=== PATIENT | male | born 2000 | race Caucasian/White ===

== ENCOUNTER 2024-12-01 17:44 | Emergency (ER) | payer BC, OTHER ==
[2024-12-01] MEDS ORDERED: KETOROLAC 30 MG/ML INJ ONE (19:09)
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
--- NOTE | 2024-12-01 19:30 | RAD REPORT ---
EXAMINATION: CERVICAL SPINE 3 VIEWS CLINICAL INDICATION: Male, 24 years old. PAIN TECHNIQUE: AP, lateral and odontoid views of the cervical spine were obtained. COMPARISON: No prior exam. FINDINGS: Alignment: The cervical spine has normal alignment. Straightening of normal lordosis which may be pos itional or secondary to muscle spasm. Bones: Vertebral body heights are maintained. No aggressive osseous lesions. Discs: Disc heights are maintained. Soft Tissue: No soft tissue abnormalities. IMPRESSION: No acute cervical spine abnormality.
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
[2024-12-01 21:06] VITALS: BP 153/81; TEMP 97.2; O2SAT 96
== END 2024-12-01 20:45 | disposition home or self-care (01) ==
LOC: ER 17:44
DX: M54.2 Cervicalgia (principal); V49.9XXA Car occupant (driver) (passenger) injured in unspecified traffic accident, initial encounter
CPT/HCPCS: 71045; 72040; 96372; 99284

== ENCOUNTER 2025-01-30 01:52 | Emergency (ER) | payer BC, OTHER ==
[2025-01-30] MEDS ORDERED: ONDANSETRON 4 MG/2 ML VIAL ONE ×2 (02:20→02:21)
[2025-01-30] MEDS ORDERED: NA CHLORIDE 0.9% 2,000 ML ONE (02:21)
[2025-01-30 02:26] LABS: Absolute Basophils 0.1 K/uL (0-0.5); Absolute Eosinophils 0.1 K/uL (0-0.5); Absolute Lymphocytes (CBC) 1.9 K/uL (0.7-4.9); Absolute Monocytes 1.1 K/uL (0.1-1.3); Absolute Neutrophil 9.2 K/uL (1.8-8.0); Eosinophils % 0.9 % (0-4.4); Hematocrit 43.9 % (39.6-49.0); Hemoglobin 14.9 g/dL (13.6-17.9); Lymphocytes % 15.2 % (15.3-44.8); MCH 29.8 pg (27.0-35.0); MCV 87.6 fL (80-100); MPV 7.4 fL (7.6-11.3); Monocytes % 9.1 % (3.3-12.3); Neutrophils % 73.8 % (41.7-73.7); Platelets 327 thou/uL (152-406); RBC Red Blood Cell Count 5.01 M/uL (4.33-5.43); Red Cell Distribution Width 13.9 % (12.1-15.2)
[2025-01-30 02:41] LABS: Albumin 3.3 g/dL (3.4-5.0); Albumin/Globulin Ratio 0.8 (1.1-1.8); Bilirubin Total 0.5 mg/dL (0.2-1.0); Globulin 4.2 g/dL (2.3-3.5); Protein, Total 7.5 g/dL (6.4-8.2)
[2025-01-30] MEDS ORDERED: ACETAMINOPHEN 500 MG TAB ONE (02:43)
[2025-01-30] MEDS ORDERED: MORPHINE 4 MG/ML SYR ONE (02:43)
[2025-01-30] MEDS ORDERED: KETOROLAC 30 MG/ML INJ ONE (02:43)
[2025-01-30] MEDS ORDERED: MORPHINE 2 MG/ML SYR ONE (02:44)
[2025-01-30] MEDS ORDERED: NA CHLORIDE 0.9% 1,000 ML ONE (02:44)
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
--- NOTE | 2025-01-30 04:41 | EDPHYS ---
Physician Documentation [facility] Name: Srinivasa Rojas Age: 24 yrs Sex: Male : 2000 Arrival Date: 01/30/2025 Time: 01:52 Bed 8 Private MD: ED Physician Josse Mcelroy HPI: 01/30 04:33 This 24 yrs old Male presents to ER via Ambulatory with complaints of sp4 Dizziness, Nausea/Vomiting, Sunburn, General Weakness. 01/31 02:39 24-year-old male presents with diffuse sunburn. Also nausea vomiting and dizziness. sp4 Associated generalized weakness.. Historical: - Allergies: 01/30 02:00 No Known Allergies; ha1 - PMHx: 02:00 Obesity; ha1 - PSHx: 02:00 Appendectomy; ha1 - Immunization history:: Adult Immunizations up to date. - Infectious Disease History:: Denies. - Social history:: Smoking status: Reported history of juuling and/or vaping. - Family history:: not pertinent. ROS: 01/31 02:39 Constitutional: Negative for fever, chills, and weight loss, positive for dizziness, sp4 nausea vomiting, diffuse sunburn, positive generalized weakness All other systems are negative, Exam: 02:39 Constitutional: This is a well developed, well nourished patient who is awake, alert, sp4 positive diffusely sunburned male, morbidly obese male, ill-appearing but nontoxic. Head/Face: Normocephalic, atraumatic. Eyes: Pupils equal round and reactive to light, extra-ocular motions intact. Lids and lashes normal. Conjunctiva and sclera are not injected. Cornea within normal limits. Periorbital areas with no swelling, redness, or edema. ENT: Nares patent. No nasal discharge, no septal abnormalities noted. Tympanic membranes are normal and external auditory canals are clear. Oropharynx with no redness, swelling, or masses, exudates, or evidence of obstruction, uvula midline. Mucous membranes moist. Neck: Trachea midline, no thyromegaly or masses palpated, and no cervical lymphadenopathy. Supple, full range of motion without nuchal rigidity, or vertebral point tenderness. Chest/axilla: Normal chest wall appearance and motion. Nontender with no deformity. No lesions are appreciated. Cardiovascular: Regular rate and rhythm with a normal S1 and S2. No gallops, murmurs, or rubs. Normal PMI, no JVD. No pulse deficits. Respiratory: Lungs have equal breath sounds bilaterally, clear to auscultation and percussion. No rales, rhonchi or wheezes noted. No increased work of breathing, no retractions or nasal flaring. Abdomen/GI: Soft, with normal bowel sounds. No distension or tympany. No guarding or rebound. No evidence of tenderness throughout. Back: No spinal tenderness. No costovertebral tenderness. Skin: Warm, dry with normal turgor. Normal color with no rashes, no lesions, and no evidence of cellulitis. MS/ Extremity: Pulses equal, no cyanosis. Neurovascular intact. Full, normal range of motion. Neuro: Awake and alert, GCS 15, oriented to person, place, time, and situation. Cranial nerves II-XII grossly intact. Motor strength 5/5 in all extremities. Sensory grossly intact. Psych: Awake, alert, with orientation to person, place and time. Behavior, mood, and affect are within normal limits Vital Signs: 01/30 02:00 BP 150 / 107; Pulse 130; Resp 20 S; Temp 98.6(O); Pulse Ox 95% on R/A; Weight 244.94 ha1 kg; Pain 7/10; 02:51 BP 122 / 82; Pulse 111; Resp 17; Pulse Ox 95% on R/A; dd2 04:18 BP 114 / 64; Pulse 88; Resp 16; Pulse Ox 95% on R/A; dd2 04:40 BP 112 / 71; Pulse 95; Resp 15; Temp 98.6; Pulse Ox 94% ; Pain 2/10; bm8 02:00 Pain Scale: Adult ha1 04:40 Pain Scale: Adult bm8 Elisa Coma Score: 02:51 Eye Response: spontaneous(4). Motor Response: obeys commands(6). Verbal Response: dd2 oriented(5). Total: 15. 04:40 Eye Response: spontaneous(4). Motor Response: obeys commands(6). Verbal Response: bm8 oriented(5). Total: . 01/31 02:39 Eye Response: spontaneous(4). Motor Response: obeys commands(6). Verbal Response: sp4 oriented(5). Total: 15. MDM: 01/30 02:15 Medical Screening Exam initiated sp4 01/31 02:39 Differential diagnosis: generalized weakness, near-syncope, sepsis, syncope. Data sp4 reviewed: vital signs, nurses notes, old medical records, lab test result(s). Consideration of Admission/Observation Escalation of care including admission/observation considered. ED course: Patient feels improved after hydration. Stable for discharge home.. 01/30 02:14 Order name: CBC with Diff; Complete Time: 04:29 sp4 01/30 02:14 Order name: CMP; Complete Time: 04: sp4 01/30 02:14 Order name: Lipase; Complete Time: : sp4 01/30 02:14 Order name: IV Saline Lock; Complete Time: 02: sp4 01/30 02:14 Order name: Labs collected and sent; Complete Time: 02:27 sp4 Administered Medications: 01/30 02:27 Drug: Ondansetron IVP 8 mg IVP once; over 2 minutes Route: IVP; Site: right antecubital;dd2 02:50 Follow up: Response: No adverse reaction dd2 02:27 Drug: NS 0.9% IV 1000 ml IV at 1 bolus Per protocol; to be given as a bolus over 60 dd2 minutes Route: IV; Rate: 1 bolus; Site: right antecubital; 04:42 Follow up: Response: No adverse reaction; IV Status: Completed infusion bm8 02:27 Drug: NS 0.9% IV 1000 ml IV at 1000 ml once; to be given as a bolus over 60 minutes dd2 Route: IV; Rate: 1000 ml; Site: right antecubital; 04:42 Follow up: Response: No adverse reaction; IV Status: Completed infusion bm8 02:50 Drug: Ketorolac IVP 30 mg IVP once Route: IVP; Site: right antecubital; dd2 04:42 Follow up: Response: No adverse reaction bm8 02:50 Drug: Acetaminophen PO 1000 mg PO once Route: PO; dd2 04:41 Follow up: Response: No adverse reaction bm8 02:50 Drug: morphine IVP or IV 6 mg IVP once over 4 mins Route: IVP; Infused Over: 4 mins; dd2 Site: right antecubital; 04:41 Follow up: Response: No adverse reaction bm8 02:50 Drug: NS 0.9% IV 1000 ml IV at 1000 ml once; to be given as a bolus over 60 minutes dd2 Route: IV; Rate: 1000 ml; Site: right antecubital; 04:41 Follow up: Response: No adverse reaction; IV Status: Completed infusion bm8 Disposition: 01/31 02:39 Chart complete. sp4 Disposition Summary: 01/30/25 04:40 Discharge Ordered Notes: Location: Home sp4 Problem: new sp4 Symptoms: have improved sp4 Condition: Stable sp4 Diagnosis - Sunburn of first degree sp4 - Acute moderate first-degree sunburn diffusely sp4 - Acute moderate dehydration, nausea and vomiting sp4 Followup: sp4 - With: Private Physician - When: 7 - 10 days - Reason: Recheck today's complaints Discharge Instructions: - Discharge Summary Sheet sp4 - Sunburn, Adult, [id number] sp4 Forms: - Work release form sp4 - Patient Portal Instructions sp4 Prescriptions: - tramadol 100 mg Oral tablet - take 1 tablet ORAL route every 8 hours PRN pain; 30 tablet; Refills: 0, Product sp4 Selection Permitted - Ibuprofen 800 mg Oral Tablet - take 1 tablet ORAL route every 8 hours As needed take with food; 30 tablet; sp4 Refills: 0, Product Selection Permitted - ondansetron 8 mg Oral Tablet,disintegrating - take 1 tablet ORAL route every 8 hours PRN nausea; 30 tablet; Refills: 0, sp4 Product Selection Permitted Addendum: 19:58 Addendum: EKG interpretation 01/30/2025 at 0 220 sinus tachycardia rate 122, no ST s p4 elevation or depression, no ectopy, normal intervals, normal axis.. Signatures: Dispatcher [employer] Toma Saldana RN RN ha1 Josse Mcelroy MD MD sp4 ALTHEA IVAN RN RN dd2 Greg Aviles RN bm8
[2025-01-30 04:53] VITALS: TEMP 98.6
[2025-01-30 04:58] VITALS: BP 112/71; O2SAT 94
== END 2025-01-30 04:48 | disposition home or self-care (01) ==
LOC: ER 01:52
DX: L55.0 Sunburn of first degree (principal); E86.0 Dehydration; R11.2 Nausea with vomiting, unspecified
CPT/HCPCS: 96361; 93005; 85025; 36415; 83690; 80053; 96375; 96374; 99284; J2270; J2405 ×2; J7030 ×2

== ENCOUNTER 2025-08-04 00:55 | Emergency (ER) | payer BC ==
[2025-08-04] MEDS ORDERED: ONDANSETRON 4 MG/2 ML VIAL ONE (01:35)
[2025-08-04] MEDS ORDERED: PIPERACIL/TAZO 4.5 GM VIAL IV ONE (01:35)
[2025-08-04] MEDS ORDERED: MORPHINE 4 MG/ML SYR ONE (01:35)
[2025-08-04] MEDS ORDERED: FAMOTIDINE 20 MG/2 ML VIAL IV ONE (01:35)
[2025-08-04] MEDS ORDERED: NA CHLORIDE 0.9% 100 ML ONE (01:36)
[2025-08-04 01:49] LABS: Absolute Lymphocytes (CBC) 2.1 K/uL (0.7-4.9); Hematocrit 43.1 % (39.6-49.0); Hemoglobin 14.6 g/dL (13.6-17.9); MCH 29.9 pg (27.0-35.0); MCHC 34.0 g/dL (32.0-36.0); MCV 88.0 fL (80-100); MPV 7.8 fL (7.6-11.3); Nucleated RBC Absolute Count 0.0 (0-0); Nucleated Red Blood Cells % 0.0 % (0-0); RBC Red Blood Cell Count 4.89 M/uL (4.33-5.43); White Blood Count 11.70 thou/uL (4.3-10.9)
[2025-08-04 01:52] LABS: PT Prothrombin Time 14.6 SECONDS (10-13.0); PTT, Activated Partial Thromb 35.0 SECONDS (27.2-37.4); Protime INR 1.3
[2025-08-04 02:02] LABS: ALT/SGPT 58 U/L (16-61); AST/SGOT 24 U/L (15-37); Albumin 2.9 g/dL (3.4-5.0); Albumin/Globulin Ratio 0.7 (1.1-1.8); Alkaline Phosphatase 81 U/L (45-117); Anion Gap 10.1 mEq/L (5.0-15.0); BUN Blood Urea Nitrogen 13 mg/dL (7-18); Globulin 4.3 g/dL (2.3-3.5); Glucose Level 143 mg/dL (74-106); Lipase 17 U/L (13-75); NT PRO-BNP 21 pg/mL (<125); Potassium 4.1 mEq/L (3.5-5.1)
[2025-08-04 02:12] LABS: Troponin High Sensitivity < 3.0 pg/mL (<58.9)
[2025-08-04] MEDS ORDERED: NA CHLORIDE 0.9% 1,000 ML ONE (02:16)
--- NOTE | 2025-08-04 02:37 | ER ---
Nurse's Notes [facility] Name: Srinivasa Rojas Age: 25 yrs Sex: Male : 2000 Arrival Date: 08/04/2025 Time: 00:55 Bed 4 Private MD: Diagnosis: Upper abdominal pain, unspecified;Nausea with vomiting, unspecified Presentation: 08/04 01:07 Chief complaint: Patient states: severe upper abdominal cramps and vomiting that vc1 started about an hour and a half ago. Coronavirus screen: Client denies travel out of the [place] in the last 14 days. vomiting. Ebola Screen: Patient negative for fever greater than or equal to 101.5 degrees Fahrenheit, and additional compatible Ebola Virus Disease symptoms Patient denies exposure to infectious person. Patient denies travel to an Ebola-affected area in the 21 days before illness onset. No symptoms or risks identified at this time. Initial Sepsis Screen: Does the patient have a suspected source of infection? No. Patient's initial sepsis screen is negative. Risk Assessment: Do you want to hurt yourself or someone else? Patient reports no desire to harm self or others. Onset of symptoms was August 03, 2025 at 23:30. Care prior to arrival: None. Activity prior to arrival: vomiting. Mechanism of Injury: No Mechanism of Injury. Transition of care: patient was not received from another setting of care. 01:07 Method Of Arrival: Ambulatory vc1 01:07 Acuity: ROSHNI 3 vc1 01:13 Initial Sepsis Screen: Does the patient meet any 2 criteria? RR > 20 per min. HR > 90 vc1 bpm. Yes. Triage Assessment: 01:09 General: Appears in no apparent distress. uncomfortable, ill, obese, Behavior is calm, vc1 cooperative, appropriate for age. Pain: Complains of pain in epigastric area, right upper quadrant and left upper quadrant Pain does not radiate. Pain currently is 8 out of 10 on a pain scale. Quality of pain is described as crampy, Pain began suddenly, 1.5 hours ago Is continuous, Also complains of vomiting. EENT: No deficits noted. No signs and/or symptoms were reported regarding the EENT system. Neuro: Level of Consciousness is awake, alert, obeys commands, Oriented to person, place, time, situation, Appropriate for age. Cardiovascular: Capillary refill < 3 seconds Patient's skin is warm and dry. Respiratory: Airway is patent Respiratory effort is even, unlabored, Respiratory pattern is symmetrical, tachypnea. GI: Reports upper abdominal pain, epigastric pain, nausea, vomiting. : No deficits noted. No signs and/or symptoms were reported regarding the genitourinary system. Derm: Skin is intact, is healthy with good turgor, Skin is dry, Skin is normal, Skin temperature is warm. Musculoskeletal: Circulation, motion, and sensation intact. Range of motion: intact in all extremities. Historical: - Allergies: :08 No Known Allergies; vc1 - Home Meds: : None [Active]; vc1 - PMHx: : Obesity; vc1 - PSHx: :08 Appendectomy; vc1 - Immunization history:: Client reports receiving the 2nd dose of the Covid vaccine, Flu vaccine is not up to date. - Infectious Disease History:: Denies. - Social history:: Smoking status: Reported history of juuling and/or vaping. Screenin:30 [facility] ED Fall Risk Assessment (Adult) History of falling in the last 3 months, mf3 including since admission No falls in past 3 months (0 pts) Confusion or Disorientation No (0 pts) Intoxicated or Sedated No (0 pts) Impaired Gait No (0 pts) Mobility Assist Device Used No (0 pt) Altered Elimination No (0 pt) Score/Fall Risk Level 0 - 2 = Low Risk. Abuse screen: Denies threats or abuse. Denies injuries from another. Nutritional screening: No deficits noted. Tuberculosis screening: No symptoms or risk factors identified. Never had TB. Assessment: :30 Neuro: Level of Consciousness is awake, alert, obeys commands, Oriented to person, mf3 place, time. Cardiovascular: Capillary refill < 3 seconds. Respiratory: Airway is patent Trachea midline Respiratory effort is even, unlabored. GI: Abdomen is distended, obese. Derm: Skin is intact, is healthy with good turgor. Vital Signs: 01:07 Weight 238.14 kg; Height 6 ft. 2 in. ; Pain 8/10; vc1 01:12 BP 124 / 73; Pulse 112; Resp 26; Temp 98.1(O); Pulse Ox 94% ; vc1 02:58 BP 137 / 82; Pulse 75; Resp 17; Pulse Ox 99% on R/A; mf3 01:07 Body Mass Index 67.41 (238.14 kg, 187.96 cm) vc1 01:07 Pain Scale: Adult vc1 Elisa Coma Score: 01:30 Eye Response: spontaneous(4). Motor Response: obeys commands(6). Verbal Response: mf3 oriented(5). Total: 15. ED Course: 00:57 Patient arrived in ED. gm2 01:08 Triage completed. vc1 01:09 Arm band placed on right wrist. vc1 01:10 Inserted saline lock: 20 gauge in left antecubital area, using aseptic technique. Blood kd3 collected. Flushed with 10 mL NS. 01:17 Bassem Mcgarry DO is Attending Physician. tt7 01:26 No provider procedures requiring assistance completed. Initial lab(s) drawn, by me, kd3 sent to lab. First set of blood cultures drawn by me, Second set of blood cultures drawn by me, EKG done, by ED staff, reviewed by Bassem Mcgarry DO. 01:30 Patient has correct armband on for positive identification. Bed in low position. Call mf3 light in reach. Side rails up X2. Provided Education on: pt understand poc. 01:30 IV discontinued, intact, bleeding controlled, No redness/swelling at site. Pressure mf3 dressing applied. 01:31 Troponin HS Sent. kd3 01:31 Ptt, Activated Sent. kd3 01:31 Protime (+inr) Sent. kd3 01:31 Lactate w/ 2H reflex if indic. Sent. kd3 01:31 CMP Sent. kd3 01:31 CBC with Diff Sent. kd3 01:31 Blood Culture Adult (2) Sent. kd3 01:31 BNP Sent. kd3 01:32 Lipase Sent. kd3 01:34 Aleah Zacarias, GEMA is Primary Nurse. kd3 02:36 Kelton Hameed MD is Referral Physician. tt7 Administered Medications: 01:45 Drug: morphine IVP or IV 4 mg IVP once over 4 mins Route: IVP; Infused Over: 4 mins; at6 Site: left antecubital; 01:45 Drug: Famotidine IVP 20 mg IVP once; dilute with 10 mL 0.9% NaCl; give over 2 minutes at6 Route: IVP; Site: left antecubital; 01:46 Drug: Piperacillin-Tazobactam IVPB 4.5 grams IVPB once over 60 mins; (mix in 100 mL NS) at6 Route: IVPB; Infused Over: 60 mins; Site: left antecubital; 01:46 Drug: Ondansetron IVP 8 mg IVP once; over 2 minutes Route: IVP; Site: left antecubital; at6 02:17 Drug: NS 0.9% IV 1000 ml IV at 1000 ml once; to be given as a bolus over 60 minutes kd3 Route: IV; Rate: 1000 ml; Site: left antecubital; 02:38 Drug: Alum-Mag Hydroxide-Simeth PO Suspension (200 mg-200 mg-20 mg/5 mL) 30 ml PO once mf3 Route: PO; 03:01 Follow up: Response: No adverse reaction mf3 03:01 Drug: Acetaminophen PO 1000 mg PO once Route: PO; mf3 03:03 Follow up: Response: No adverse reaction mf3 Medication: 01:30 VIS not applicable for this client. mf3 Outcome: 02:37 Discharge ordered by . tt7 02:40 Discharged to home ambulatory, mf3 02:40 Condition: stable mf3 02:40 Discharge instructions given to patient, family, Instructed on discharge instructions, follow up and referral plans. Demonstrated understanding of instructions, follow-up care, medications, Prescriptions given X 1, 02:59 Patient left the ED. mf3 Signatures: Aleah Zacarias RN RN kd3 Chiquita Diaz RN RN 1 Cat Harkins 2 Carolina Gatica RN RN mf3 Bassem Mcgarry DO DO tt7 Milady Mcgarry RN RN at6 Corrections: (The following items were deleted from the chart) 01:31 01:26 Inserted saline lock: 20 gauge in left antecubital area, using aseptic technique. kd3 Blood collected. Flushed with 10 mL NS kd3
--- NOTE | 2025-08-04 02:37 | EDPHYS ---
Physician Documentation [facility] Name: Srinivasa Rojas Age: 25 yrs Sex: Male : 2000 Arrival Date: 08/04/2025 Time: 00:55 Bed 4 Private MD: ED Physician Bassem Mcgarry HPI: 08/04 02:19 This 25 yrs old Male presents to ER via Ambulatory with complaints of UPPER ABD PAIN, tt7 Vomiting. 02:19 Patient reports approximately 1 hour prior to arrival he developed sharp/cramping tt7 epigastric abdominal pain with approximately 10 episodes of nonbloody nonbilious vomiting, has not been able to tolerate any oral intake in the past hour, denies fever, denies chest pain or shortness of breath, denies sick contacts, no significant past medical history, no exacerbating or alleviating factors. Historical: - Allergies: 01:08 No Known Allergies; vc1 - Home Meds: 01:08 None [Active]; vc1 - PMHx: 01:08 Obesity; vc1 - PSHx: 01:08 Appendectomy; vc1 - Immunization history:: Client reports receiving the 2nd dose of the Covid vaccine, Flu vaccine is not up to date. - Infectious Disease History:: Denies. - Social history:: Smoking status: Reported history of juuling and/or vaping. ROS: 02:16 Constitutional: negative for fever. Cardiovascular: negative for chest pain. tt7 Respiratory: negative for shortness of breath. MS/Extremity: negative for injury and deformity. Skin: negative for rash. Neuro: negative for focal weakness. 02:16 Abdomen/GI: Positive for abdominal pain, nausea and vomiting, Exam: 02:25 Constitutional: vital signs reviewed, morbidly obese, uncomfortable appearing. tt7 Head/Face: normocephalic, atraumatic. Eyes: no conjunctival injection, anicteric sclerae. ENT: mucus membranes moist. Neck: trachea midline, no JVD, no meningismus. Cardiovascular: Tachycardic, regular rhythm, no lower extremity edema. Respiratory: Mildly tachypneic, normal respiratory effort, no accessory muscle use, lungs CTAB. Abdomen/GI: soft, nondistended, moderate epigastric tenderness to palpation, no guarding or rebound, negative Bliss's sign, no McBurney point tenderness. Back: normal ROM. Skin: warm, dry, intact, normal turgor, normal color, no rash. MS/ Extremity: normal ROM of extremities, no gross deformities. Neuro: alert and oriented with appropriate mental status, normal speech, follows commands, no focal neurologic deficits. Psych: appropriate mood and affect. Vital Signs: 01:07 Weight 238.14 kg; Height 6 ft. 2 in. ; Pain 8/10; vc1 01:12 BP 124 / 73; Pulse 112; Resp 26; Temp 98.1(O); Pulse Ox 94% ; vc1 02:58 BP 137 / 82; Pulse 75; Resp 17; Pulse Ox 99% on R/A; mf3 01:07 Body Mass Index 67.41 (238.14 kg, 187.96 cm) vc1 01:07 Pain Scale: Adult vc1 Elisa Coma Score: 01:30 Eye Response: spontaneous(4). Motor Response: obeys commands(6). Verbal Response: mf3 oriented(5). Total: 15. MDM: 01:17 Medical Screening Exam initiated tt7 02:18 Differential diagnosis: Nonspecific abd pain, gastritis, pancreatitis. Data reviewed: tt7 vital signs, nurses notes, lab test result(s), EKG. ED course: I independently interpreted the patient's EKG performed on 08/04/2025 at 0122. On my interpretation, EKG demonstrates sinus tachycardia, ventricular rate 101 bpm, normal axis, normal QRS interval, normal ST segments, no STEMI. 02:26 ED course: Patient met 2+ SIRS criteria with tachypnea and tachycardia on arrival, tt7 sepsis alert was called, broad workup was initiated including blood cultures, empiric Zosyn was administered, lactate was drawn and returned in normal limits, 1.2, patient complaining of abdominal pain with nausea/vomiting, suspect the vital sign abnormalities are likely due to hypovolemia, will resuscitate with 1 L of IV fluids, patient is normotensive and lactate is normal. No concern for septic shock. Laboratory studies demonstrate a mild leukocytosis, otherwise no acute abnormalities, patient was treated with IV famotidine, morphine, and Zofran. Due to his size and weight he is too large for our CT imaging table. I will reassess the patient after interventions and if clinically warranted patient will need to be transferred to a facility that can accommodate a patient of his size to get CT imaging of the abdomen/pelvis. 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 08/04 01:17 Order name: BNP; Complete Time: 02:14 08/04 01:17 Order name: Blood Culture Adult (2) 08/04 01:17 Order name: CBC with Diff; Complete Time: 02:14 08/04 01:17 Order name: CMP; Complete Time: 02:14 08/04 01:17 Order name: Lactate w/ 2H reflex if indic.; Complete Time: 02:15 08/04 01:17 Order name: Protime (+inr); Complete Time: 02:14 08/04 01:17 Order name: Ptt, Activated; Complete Time: 02:14 08/04 01:17 Order name: Troponin HS; Complete Time: 02:14 08/04 01:18 Order name: Lipase; Complete Time: 02:14 08/04 01:17 Order name: Accucheck; Complete Time: :32 08/04 01:17 Order name: Cardiac monitoring; Complete Time: :32 08/04 01:17 Order name: EKG - Nurse/Tech; Complete Time: :08/04 01:17 Order name: IV Saline Lock - Large Bore; Complete Time: :32 08/04 01:17 Order name: Labs collected and sent; Complete Time: :08/04 01:17 Order name: O2 Per Protocol; Complete Time: 08/04 01:17 Order name: O2 Sat Monitoring; Complete Time: : tt7 08/04 01:17 Order name: Vital Signs; Complete Time: tt7 Administered Medications: 01:45 Drug: morphine IVP or IV 4 mg IVP once over 4 mins Route: IVP; Infused Over: 4 mins; at6 Site: left antecubital; 01:45 Drug: Famotidine IVP 20 mg IVP once; dilute with 10 mL 0.9% NaCl; give over 2 minutes at6 Route: IVP; Site: left antecubital; 01:46 Drug: Piperacillin-Tazobactam IVPB 4.5 grams IVPB once over 60 mins; (mix in 100 mL NS) at6 Route: IVPB; Infused Over: 60 mins; Site: left antecubital; 01:46 Drug: Ondansetron IVP 8 mg IVP once; over 2 minutes Route: IVP; Site: left antecubital; at6 02:17 Drug: NS 0.9% IV 1000 ml IV at 1000 ml once; to be given as a bolus over 60 minutes kd3 Route: IV; Rate: 1000 ml; Site: left antecubital; 02:38 Drug: Alum-Mag Hydroxide-Simeth PO Suspension (200 mg-200 mg-20 mg/5 mL) 30 ml PO once mf3 Route: PO; 03:01 Follow up: Response: No adverse reaction mf3 03:01 Drug: Acetaminophen PO 1000 mg PO once Route: PO; mf3 03:03 Follow up: Response: No adverse reaction mf3 Disposition: 02:41 Co-signature as Attending Physician, Bassem Mcgarry DO. tt7 Disposition Summary: 08/04/25 02:37 Discharge Ordered Notes: Location: Home tt7 Problem: new tt7 Symptoms: have improved tt7 Condition: Stable tt7 Diagnosis - Upper abdominal pain, unspecified tt7 - Nausea with vomiting, unspecified tt7 Followup: tt7 - With: Emergency Department - When: As needed - Reason: Followup: tt7 - With: Kelton Hameed MD - When: 1 - 2 days - Reason: Recheck today's complaints Discharge Instructions: - Discharge Summary Sheet tt7 - Gastritis, Adult, [id number] tt7 - Gastroesophageal Reflux Disease, Adult, [id number] tt7 Forms: - Work release form mf3 - Medication Reconciliation Form tt7 - Antibiotic Education tt7 - Prescription Opioid Use tt7 - Patient Portal Instructions tt7 - Leadership Thank You Letter tt7 Prescriptions: - Zofran 4 mg Oral tablet - take 1 tablet ORAL route every 8 hours As needed; 20 tablet; Refills: 0, tt7 Product Selection Permitted Signatures: Dispatcher [employer] EDMS Aleah Zacarias, RN RN kd3 Chiquita Diaz, RN RN vc1 Carolina Gatica RN RN mf3 Bassem Mcgarry DO DO tt7 Milady Mcgarry RN RN at6 Corrections: (The following items were deleted from the chart) 01:18 01:18 PROBNP+C.LAB.BRZ ordered. EDMS EDMS 01:18 01:18 BLOOD CULTURE*+BA.LAB.BRZ ordered. EDMS EDMS 01:18 01:18 CBC+H.LAB.BRZ ordered. EDMS EDMS 01:18 01:18 COMPREHENSIVE METABOLIC PANEL+C.LAB.BRZ ordered. EDMS EDMS 01:18 01:18 LACTATE+C.LAB.BRZ ordered. EDMS EDMS 01:18 01:18 PROTIME (+INR)+COAG.LAB.BRZ ordered. EDMS EDMS 01:18 01:18 PTT, ACTIVATED+COAG.LAB.BRZ ordered. EDMS EDMS 01:18 01:18 Troponin High Sensitivity+C.LAB.BRZ ordered. EDMS EDMS 01:18 01:18 Abdomen Pelvis W Con+CT.RAD.BRZ ordered. EDMS EDMS 02:25 02:19 Patient reports approximately 1 hour prior to arrival he. tt7 tt7
[2025-08-04] MEDS ORDERED: MAGNES/ALUMIN/SIMET 30ML UCUP ONE (02:43)
[2025-08-04] MEDS ORDERED: ACETAMINOPHEN 500 MG TAB ONE (02:43)
[2025-08-04 05:06] VITALS: TEMP 98.1
[2025-08-04 05:12] VITALS: BP 137/82; O2SAT 99
== END 2025-08-04 02:59 | disposition home or self-care (01) ==
LOC: ER 00:55
DX: R10.13 Epigastric pain (principal); R11.2 Nausea with vomiting, unspecified; F17.290 Nicotine dependence, other tobacco product, uncomplicated
CPT/HCPCS: 87040 ×2; 85025; 36415; 85610; 83605; 85730; 84484; 83690; 80053; 83880; 96375; 96374; 99284; J2405; J7030